=== PATIENT | female | born 1965 | race African-American/Black ===

== ENCOUNTER 2024-06-28 22:42 | Emergency (ER) | payer OTHER ==
[~2024-06-28] VITALS: Ht 162.6 cm; Wt 118.0 kg
[2024-06-28 23:08] VITALS: O2SAT 100
[2024-06-29] MEDS: AMLODIPINE 5MG TABLET PO NR
[2024-06-29] MEDS: MORPHINE SULFATE 4 MG/ML INJ (FOR IV/IM USE) IM ONE (00:29)
[2024-06-29] MEDS: LIDOCAINE 5% PATCH TOP SCH (00:29)
[2024-06-29] MEDS: ACETAMINOPHEN 325MG TABLET PO ONE (00:29)
[2024-06-29 01:52] VITALS: BP 111/72; PULSE 94; RESP 17; TEMP 37.05852; O2SAT 98
[2024-06-29] MEDS ORDERED: NAPR-1074 MT (03:28)
[2024-06-29] MEDS ORDERED: BACL-141 MT (03:28)
== END 2024-06-29 07:02 | disposition home or self-care (01) ==
LOC: ER 22:42
DX: M54.50 Low back pain, unspecified (principal); M54.2 Cervicalgia; G89.29 Other chronic pain; I10 Essential (primary) hypertension
CPT/HCPCS: 99285; 72125; 96372; J2270